=== PATIENT | female | born 1935 | race Caucasian/White ===

== ENCOUNTER 2023-11-04 17:44 | Emergency (ER) | payer OTHER, MEDICAID ==
[~2023-11-04] VITALS: Ht 170.2 cm; Wt 63.5 kg
[2023-11-04 17:55] VITALS: BP 141/66; PULSE 64; RESP 18; TEMP 97.7; O2SAT 95
[2023-11-04 19:10] VITALS: TEMP 98.6
[2023-11-04] MEDS: MORPHINE SULFATE 4 MG/ML SYR IM ONE (19:19)
[2023-11-04 19:50] VITALS: O2SAT 97
[2023-11-04] MEDS ORDERED: hydrALAZINE 10 MG TAB ONE (23:39)
[2023-11-04] MEDS ORDERED: LOSARTAN 50 MG TAB ONE (23:39)
[2023-11-04 23:48] VITALS: RESP 18
[2023-11-05 00:42] VITALS: BP 210/102; PULSE 74
[2023-11-05] MEDS: hydrALAZINE 20 MG/ML VIAL IM ONE (00:42)
[2023-11-05] MEDS: LOSARTAN 50 MG TAB PO SCH (00:43)
== END 2023-11-05 00:11 ==
LOC: MED 17:44
DX: S00.83XA Contusion of other part of head, initial encounter (principal); S00.12XA Contusion of left eyelid and periocular area, initial encounter; M25.512 Pain in left shoulder; E11.9 Type 2 diabetes mellitus without complications; I10 Essential (primary) hypertension; F03.90 Unspecified dementia, unspecified severity, without behavioral disturbance, psychotic disturbance, mood disturbance, and anxiety; Z96.649 Presence of unspecified artificial hip joint; Z88.5 Allergy status to narcotic agent; W18.39XA Other fall on same level, initial encounter; Y92.89 Other specified places as the place of occurrence of the external cause; Y93.89 Activity, other specified; Y99.8 Other external cause status
CPT/HCPCS: 70450; 70486; 73030; 96372; 99285; J2270